=== PATIENT | female | born 1995 | race Two or more races ===

== ENCOUNTER 2023-04-17 10:18 | Day surgery (SDC) | payer MEDICAID ==
[2023-04-15 10:52] LABS: Basophils # (auto) 0.1 10 ^3/uL (0-0.2); Eosinophils # (auto) 0.1 10 ^3/uL (0-0.8); Hemoglobin 11.9 g/dL (12.2-16.2); Lymphocytes # (auto) 2.2 10 ^3/uL (0.4-5.4); Mean Corpuscular Hemoglobin 25.5 pg (28.0-32.0); Red Cell Distribution Width 15.4 % (11.8-14.3)
[2023-04-15 10:54] LABS: Eosinophils % (auto) 1.5 % (0.0-7.0); Hematocrit 36.6 % (36.0-46.0); Lymphocytes % (auto) 24.8 % (10.0-50.0); Mean Corpuscular Hgb Conc. 32.4 g/dL (32.0-36.0); Mean Corpuscular Volume 78.7 fL (80.0-100.0); Monocytes # (auto) 0.5 10 ^3/uL (0-1.3); Monocytes % (auto) 5.7 % (0.0-12.0); Red Blood Cells 4.66 10^6/uL (4.0-5.20)
[2023-04-15 11:00] LABS: Urine Bacteria NONE SEEN /hpf (None Seen); Urine Blood Negative /uL (Negative); Urine Clarity Clear (Clear); Urine Color Yellow (Yellow); Urine Mucus FEW (None Seen); Urine Protein, UAD Negative (Negative); Urine Specific Gravity 1.024 (1.001-1.035); Urine Urobilinogen Normal (Negative); Urine WBC 2 /hpf (0 - 5); Urine pH 6.5 (5.0-8.0)
[2023-04-15 11:07] LABS: Partial Thromboplastin Time 30.3 SEC (24.5-34.5); Prothrombin Time 10.5 sec (9.3-11.8)
[2023-04-15 11:34] LABS: Alanine Aminotransferase 22 U/L (7-40); Albumin 4.4 g/dL (3.2-4.8); Alkaline Phosphatase 87 U/L (46-116); Anion Gap 4 (5-15); Aspartate Aminotransferase 13 U/L (13-40); BUN/Creatinine Ratio 9.4 (10.0-20.0); Blood Urea Nitrogen 5 mg/dL (9-23); Carbon Dioxide 27 mmol/L (20-30); Chloride 107 mmol/L (98-107); Glucose 100 mg/dL (74-106); Potassium 4.2 mmol/L (3.5-5.1); Sodium 138 mmol/L (136-145)
[2023-04-15 11:35] LABS: Bilirubin, Total 0.3 mg/dL (0.2-1.0); Total Protein 6.9 g/dL (5.7-8.2)
[~2023-04-17] VITALS: Ht 157.5 cm; Wt 112.9 kg
[~2023-04-17 10:18] MED LIST: LURA1TAB PO
[2023-04-17] MEDS ORDERED: LIDOCAINE VISCOUS 2% 15ML UD ONE (10:34)
[2023-04-17] MEDS ORDERED: MIDAZOLAM HCL 2MG/2ML 2ml VIAL (1mg/ml) ONE (10:46)
[2023-04-17] MEDS ORDERED: PROPOFOL 10 MG/ML 20 ML IV ONE (10:46)
[2023-04-17] MEDS ORDERED: fentaNYL CITRATE 100 MCG/2 ML VL ONE (10:46)
[2023-04-17] MEDS ORDERED: ONDANSETRON HCL 4 MG/2 ML VIAL ONE (10:46)
[2023-04-17] MEDS ORDERED: DexAMETHasone SOD PHOS 10MG/1ML VIAL INJ ONE (10:46)
[2023-04-17] MEDS ORDERED: SODIUM CHLORIDE LOCK 10 ML ONE (10:46)
[2023-04-17 11:28] VITALS: RESP 17; TEMP 98.7; O2SAT 100
[2023-04-17 11:50] VITALS: BP 121/68; PULSE 83; RESP 22; O2SAT 97
== END 2023-04-17 12:00 | disposition home or self-care (01) ==
LOC: GI 10:18
PROVIDERS: ATTEND Internal Medicine Gastroenterology
DX: K92.89 Other specified diseases of the digestive system (principal); K29.80 Duodenitis without bleeding; I10 Essential (primary) hypertension; F31.9 Bipolar disorder, unspecified; E66.01 Morbid (severe) obesity due to excess calories; Z86.2 Personal history of diseases of the blood and blood-forming organs and certain disorders involving the immune mechanism; Z79.899 Other long term (current) drug therapy; Z98.890 Other specified postprocedural states; Z68.42 Body mass index [BMI] 45.0-49.9, adult
CPT/HCPCS: 36415; 43235; 80053; 81001; 84702; 85025; 85610; 85730; J1100; J2250; J2405; J2704; J3010; J7030